=== PATIENT | female | born 1955 | race Hispanic/Latino ===

== ENCOUNTER 2020-11-06 03:45 | Emergency (ER) | payer OTHER ==
[~2020-11-06] VITALS: Ht 149.9 cm; Wt 72.6 kg
[2020-11-06 04:03] VITALS: BP 136/84
[2020-11-06] MEDS ORDERED: MORPHINE 4 MG SYG IM ONE (05:30)
[2020-11-06 06:25] VITALS: BP 126/75
== END 2020-11-06 06:33 | disposition home or self-care (01) ==
LOC: EDH 03:45
DX: S70.11XA Contusion of right thigh, initial encounter (principal); S70.01XA Contusion of right hip, initial encounter; M25.561 Pain in right knee; W18.39XA Other fall on same level, initial encounter; Y93.89 Activity, other specified; Y92.89 Other specified places as the place of occurrence of the external cause; Y99.8 Other external cause status
CPT/HCPCS: 72170; 72192; 73552; 73562; 96372; 99284; J2270